=== PATIENT | female | born 1960 ===

== ENCOUNTER 2021-11-23 10:12 | Outpatient (REF) | payer MEDICARE, SELFPAY | END 2021-11-23 10:13 | disposition home or self-care (01) | LOC: HO.WFDLDS 10:12 | PROVIDERS: PCP Family Medicine; Visit Provider Internal Medicine | DX: Z20.822 Contact with and (suspected) exposure to COVID-19 (principal) | CPT/HCPCS: C9803; U0003; U0005 ==

== ENCOUNTER 2022-10-26 11:17 | Outpatient (REF) | payer MEDICARE, MEDICAID, SELFPAY ==
[2022-10-26 15:04] LABS: Influenza A PCR NEGATIVE (Negative); Influenza B PCR NEGATIVE (Negative); Resp Syncy Virus RNA Qual PCR NEGATIVE (Negative); SARS COV2 PCR INHOUSE NEGATIVE (Negative)
== END 2022-10-26 11:18 | disposition home or self-care (01) ==
LOC: HO.LAB 11:17
PROVIDERS: Visit Provider Hospitalist
DX: R06.00 Dyspnea, unspecified (principal); Z20.822 Contact with and (suspected) exposure to COVID-19
CPT/HCPCS: 0241U